=== PATIENT | female | born 1995 | race Caucasian/White ===

== ENCOUNTER 2017-03-21 11:55 | Emergency (ER) | payer BC ==
[2017-03-21 12:03] VITALS: RESP 16; TEMP 97.5
[2017-03-21 12:51] VITALS: BP 102/76; PULSE 70; O2SAT 99
== END 2017-03-21 13:02 | disposition home or self-care (01) ==
LOC: ED 11:55
DX: M25.512 Pain in left shoulder (principal); V44.5XXA Car driver injured in collision with heavy transport vehicle or bus in traffic accident, initial encounter; R07.9 Chest pain, unspecified
CPT/HCPCS: 71020; 73030; 84703; 99283